=== PATIENT | male | born 1945 | race Two or more races ===

== ENCOUNTER 2017-03-29 08:16 | Day surgery (SDC) | payer MEDICARE, BC ==
[2017-03-29] VITALS (10 sets, daily range): BP systolic 114–148; BP diastolic 78–89
[~2017-03-29] VITALS: Ht 162.6 cm; Wt 63.5 kg
[~2017-03-29 08:16] MED LIST: ASPIRIN-LOW81 MG ORAL; ATORVASTATIN CA10 MG ORAL; LR 1000ml 1,000 ML IVLG SCH; OMEPRAZOLE40 M1 ORAL; TOPROL XL25 MG ORAL
[2017-03-29] MEDS ORDERED: Midazolam 2mg/2ml Inj ONE (10:00)
[2017-03-29] MEDS ORDERED: fentaNYL 100 mcg/2 mL IV ONE (10:00)
[2017-03-29] MEDS ORDERED: Propofol 10mg/ml 20ml IV ONE (10:00)
--- NOTE | 2017-03-29 10:06 | Short Stay Surgery H&P ---
History of Present Illness History of Present Illness Chief Complaint Abdominal pain and colon screening HPI Bernardo Hammer is a 71 year old male who was admitted on for Abdominal Pain/ colon screening Patient History Allergies: Coded Allergies: No Known Allergies (Unverified , 03/28/17) PAST MEDICAL HISTORY: (1) Hyperlipidemia (2) Bladder cancer Past Surgeries: Social History: Medication History Scheduled Aspirin (Aspirin EC), 81 MG ORAL DAILY, (Reported) Atorvastatin Calcium* (Lipitor*), 10 MG ORAL BEDTIME, (Reported) Metoprolol Succinate* (Toprol Xl*), 25 MG ORAL DAILY, (Reported) Omeprazole (Omeprazole), 40 MG ORAL DAILY, (Reported) Review of Systems Cardiovascular: Reports: no symptoms Respiratory: Reports: no symptoms Skeletal: Reports: no symptoms Gastrointestinal: Reports: other Genitourinary: Reports: other Neurologic: Reports: no symptoms Endocrine: Reports: no symptoms Hematologic: Reports: no symptoms Physical Exam Vital Signs Last Vital Signs Date Time Temp Pulse Resp B/P Pulse Ox O2 Delivery O2 Flow Rate FiO2 03/29/17 08:42 97.9 95 18 148/89 98 Room Air Skin: normal HENT: normal Heart: normal Lungs: normal Abdomen: normal Extremities: normal Genitourinary: normal Plan Plan of Care Upper and the lower GI endoscopy Preop Interventions None. Summary of Findings See the reports Final Diagnosis: Attestation Are the patient's medical conditions optimized for surgery? Attestation Response: yes AVNESA OROZCO Mar 29, 2017 10:06
--- NOTE | 2017-03-29 10:07 | Pre-Procedure Note/Attestation ---
Pre-Procedure Note/Attestation Complete Prior to Procedure Planned Procedure: left Procedure Narrative: The endoscopic examination of the upper and the lower GI tract with biopsy Indications for Procedure Pre-Operative Diagnosis: R/O colon cancer /peptic ulcer Attestation I attest that I discussed the nature of the procedure; its benefits; risks and complications; and alternatives (and the risks and benefits of such alternatives ), prior to the procedure, with the patient (or the patient's legal commercial pest control representative). I attest that, if there was a reasonable possibility of needing a blood transfusion, the patient (or the patient's legal commercial pest control representative) was given the [place] Department [employer] standardized written summary, pursuant to the Orlin Pettit Blood Safety Act ([place] Health and Safety Code # 1645, as amended). I attest that I re-evaluated the patient just prior to the surgery and that there has been no change in the patient's H&P, except as documented below: PAMSAID Mar 29, 2017 10:07
--- NOTE | 2017-03-29 10:23 | Anethesia Preoperative Eval ---
Anesthesia Pre-op PMH/ROS General Date of Evaluation: Mar 29, 2017 Time of Evaluation: 10:03 ASA Score: ASA 2 Mallampati Score Class I : Soft palate, uvula, fauces, pillars visible Class II: Soft palate, uvula, fauces visible Class III: Soft palate, base of uvula visible Class IV: Only hard plate visible Mallampati Classification: Class II Surgeon: tirso Diagnosis: esophagal mass Surgical Procedure: EGD/Clonoscopy Anesthesia History: none Family History: no anesthesia problems Allergies: Coded Allergies: No Known Allergies (Unverified , 03/28/17) Medications: see eMAR Anesthesia Pre-op Phys. Exam Physician Exam Last Vital Signs Date Time Temp Pulse Resp B/P Pulse Ox O2 Delivery O2 Flow Rate FiO2 03/29/17 08:42 97.9 95 18 148/89 98 Room Air Constitutional: NAD Neurologic: CN 2-12 intact Cardiovascular: RRR Respiratory: CTA Airway Exam Mallampati Score: Class I MO: full ROM: full Teeth: intact Anesthesia Pre-op A/P Risk Assessment & Plan Plan: MAC Status Change Before Surgery: No Pre-Antibiotics Given Within 1 Hr of Incision: No Chay Workman M.D. Mar 29, 2017 10:23
--- NOTE | 2017-03-29 10:27 | Immediate Post-Op Evaluation ---
Immediate Post-Op Evalulation Immediate Post-Op Evalulation Procedure: EGD/Colonoscopy Date of Evaluation: Mar 29, 2017 Time of Evaluation: 11:00 IV Fluids: 200 Blood Products: 0 Estimated Blood Loss: 0 Urinary Output: 0 Blood Pressure Systolic: 162 Blood Pressure Diastolic: 72 Pulse Rate: 68 Respiratory Rate: 16 O2 Sat by Pulse Oximetry: 99 Temperature (Fahrenheit): 98 Nausea: No Vomiting: No Patient Status: awake, reacts, patent Hydration Status: adequate Given Within 1 Hr of Incision: Chay Russell M.D. Mar 29, 2017 10:27
--- NOTE | 2017-03-29 10:31 | 48 Hour Post Anesthesia Eval ---
Post Anesthesia Evaluation Procedure: EGD/Colonoscopy Date of Evaluation: Mar 31, 2017 Time of Evaluation: 08:00 Blood Pressure Systolic: 170 0: 80 Pulse Rate: 70 Respiratory Rate: 16 Temperature (Fahrenheit): 98 O2 Sat by Pulse Oximetry: 99 Airway: patent Nausea: No Vomiting: No Hydration Status: adequate Mental Status/LOC: patient returned to baseline Post-Anesthesia Complications: NONE Follow-up care needed: patient intructions given Chay Workman M.D. Mar 29, 2017 10:31
--- NOTE | 2017-03-29 10:39 | Endoscopy Procedure Note ---
Endoscopy Procedure Note Indication for Procedure: Abnormal CT scan of the chest R/O esophageal lesion/ screening colon Procedures Performed: EGD - Completely normal upper GI endoscopy, biopsy done per random from gastric body., colonoscopy - Substandard colon preparation with incidental finding of 1 CM pedunculated polypod lesion in the lower descending colon C/W adenamatous polyp removed with hot snare. Specimen: yes Estimated Blood Loss: none Anesthesiologist: Dr. Cortez Anesthesia: moderate sedation Implant(s) used?: No 50 yrs or older w/o bx or poly: Yes 10yrs. F/U not recommended: Yes 10 yrs. F/U needed: No 18 years or older w/prev. colo: No <3yrs. since last colonoscopy: No Med reason:<3 yrs.: System Reason:<3 yrs.: Last colonoscopy >= to 3yrs: Yes VANESA OROZCO Mar 29, 2017 10:39
--- NOTE | 2017-03-29 10:40 | Discharge Instructions ---
Discharge Instructions Discharge Instructions Follow up with: See the doctor in the office after 2 weeks. For Congestive Heart Failure Reminder Report to your physician any weight gain of 5 pounds or more in one week. VANESA OROZCO Mar 29, 2017 10:40
[2017-03-29] MEDS ORDERED: fentaNYL 100 mcg/2 mL IV PRN (10:45)
[2017-03-29] MEDS ORDERED: Morphine Sulfate 2mg/ml Inj IVP PRN (10:45)
[2017-03-29] MEDS ORDERED: Metoclopramide 10mg/2ml Inj IVP PRN (10:45)
--- NOTE | 2017-03-29 13:30 | Operative Note - Dictated ---
DATE OF OPERATION: 03/29/2017 PROCEDURE: Esophagogastroduodenoscopy with biopsy. PREOPERATIVE DIAGNOSIS: Abnormal CT scan of the chest, rule out esophageal lesions. POSTOPERATIVE DIAGNOSIS: Completely normal upper gastrointestinal endoscopy. No evidence of any abnormality in the esophagus and the stomach. Random biopsy from gastric body obtained. MEDICATION USED: Per Dr. Cortez anesthesiologist. INSTRUMENT: GIF Olympus upper gastrointestinal video endoscope. DESCRIPTION OF PROCEDURE: The patient after arriving endoscopy unit, was told about risks and benefits of the procedure, which he accepted and signed the informed consent. The patient had so called abnormal CT scan of the chest mentioning the possibility of esophageal lesion and as such, the patient had been scheduled to undergo the procedure of upper gastrointestinal endoscopy though he did not have any clinical symptoms of any problem in the esophagus including dysphagia, chest pain, etc. At this point, after adequate IV sedation, the scope was gently passed through the cricopharyngeal area, was lodged into the upper esophagus, and gradually advanced towards gastroesophageal junction. The entire length of the esophagus was examined very carefully and there was no any abnormality in the esophageal mucosa, no stricture, polyp, tumor, etc. was found. At this point, the scope was gradually reached towards the gastroesophageal junction which looked completely normal as well. No hiatal hernia or Verma's. There was no stricture as such the scope was passed into the stomach. Gastric cavity was distended. At this point, gradually from the fundus and the body and the antrum. the gastric cavity was examined carefully which revealed no abnormalities such as tumors, polyps, inflammatory process, gastritis, etc. The retroflexion maneuver was also applied to evaluate the gastroesophageal junction better which revealed normal findings. Finally, after obtaining a gastric biopsy randomly from the gastric body the scope was gradually passed through the antrum. The pylorus first and second portion of duodenum were found to be also within normal limits. At this point, the scope was pulled out. The procedure was terminated. The patient tolerated the procedure well. Said Jarvis Velasco DR: BHARGAVI JOB#: [id number] CC:
--- NOTE | 2017-03-29 23:30 | Operative Note - Dictated ---
DATE OF OPERATION: 03/29/2017 PROCEDURE: Total colonoscopy with polypectomy. PREOPERATIVE DIAGNOSIS: Screening colonoscopy. POSTOPERATIVE DIAGNOSES: 1. A 1 cm pedunculated polypoid lesion found over the lower descending colon, removed with hot snare. Otherwise, completely normal study up to the base of the cecum as examined. 2. Substandard colonic preparation. MEDICATIONS USED: Per Dr. Cortez, anesthesiologist. INSTRUMENT: GIF Olympus videocolonoscope. DESCRIPTION OF PROCEDURE: The patient after arriving in the endoscopy unit, was told about risks and benefits of the procedure, which he accepted and signed the informed consent. At this point, he was put on the left lateral decubitus position. After adequate IV sedation, the scope was gently passed through the anal area, which did not reveal any particular abnormality except some hemorrhoidal tags of no significance. The whole entire length of the rectum was examined in a retroflexion maneuver of the scope, which also revealed no abnormality. At this time, the scope was passed through somewhat redundant left colon, which was filled with somewhat semiformed stool along the colon suggestive of lack of adequate good preparation and good preparation of the colon. However, there was no any major pathology such as tumors or inflammatory process. After irrigation, the scope was gradually advanced toward the lower descending colon, which incidentally there was seen evidence of 1 cm pedunculated polypoid lesion, which looked quite benign looking and it was grabbed with hot snare forceps and totally removed and sent to the pathology lab. The site of the polypectomy looked normal and there was no bleeding. At this point, the scope was gradually advanced toward the splenic flexure, transverse colon, hepatic flexure, and finally guided into the right colon all the way to the base of the cecum. All these areas also remained to be completely normal and there was no any evidence of gross pathology, though presence of diminutive hyperplastic polypoid lesion due to lack of adequate preparation could not be ruled out. However, as I mentioned, there was no any major pathology rather than 1 cm pedunculated polyp, which was found in the left colon. Finally, within 8 minutes, the scope was gradually pulled out and the procedure was terminated. The patient tolerated the procedure well and left the endoscopy room in good condition. Said Jarvis Velasco DR: JOE JOB#: [id number] CC:
== END 2017-03-29 12:30 | disposition home or self-care (01) ==
LOC: GAS 08:16
DX: Z12.11 Encounter for screening for malignant neoplasm of colon (principal); D12.4 Benign neoplasm of descending colon; K29.50 Unspecified chronic gastritis without bleeding; E78.5 Hyperlipidemia, unspecified; Z85.51 Personal history of malignant neoplasm of bladder; Z79.82 Long term (current) use of aspirin
CPT/HCPCS: 43239; 45385; J2250; J2704; J3010; 94003; 94150